=== PATIENT | male | born 1960 | race Hispanic/Latino ===

== ENCOUNTER 2017-05-08 09:42 | Outpatient (CLI) | payer OTHER ==
--- NOTE | 2017-05-08 10:29 | XRay Report ---
Cervical spine: Neck spasms. AP and lateral projections demonstrates spondylosis anteriorly from the inferior margin of C4-C6 with significant narrowing of the interspace at C5-6 and possibly C6-7. Mild generalized compression of the C6 body. Degenerative apophyseal joint changes bilaterally at C5-6 and C6-7 levels. No malalignment identified but there is slight straightening of the cervical spine. No prevertebral swelling. Impression: The findings are most consistent with degenerative changes from C5-C7. No suspicion of acute change.
== END 2017-05-08 09:43 | disposition home or self-care (01) ==
LOC: SPVIMAG 09:42
PROVIDERS: ATTEND Family Medicine
DX: M54.2 Cervicalgia (principal); M62.838 Other muscle spasm
CPT/HCPCS: 72050

== ENCOUNTER 2017-07-14 06:35 | Day surgery (SDC) | payer OTHER ==
[2017-07-14] MEDS ORDERED: ECOTRIN PO ONE (06:53)
[2017-07-14] MEDS ORDERED: NACL 0.9% 500 ML 500 ML IV SCH (07:00)
[2017-07-14 07:11] LABS: Basophils # (Auto) 0.1 K/mm3 (0.0-0.1); Basophils % (Auto) 1.2 % (0.0-1.8); Eosinophils # (Auto) 0.2 K/mm3 (0.0-0.4); Eosinophils % (Auto) 2.8 % (0.0-4.3); Hematocrit 45.3 % (35.5-45.6); Hemoglobin 15.4 gm/dl (11.8-15.2); Lymphocytes # (Auto) 1.8 K/mm3 (1.2-5.4); Lymphocytes % (Auto) 30.3 % (13.4-35.0); Mean Corpuscular HGB Conc 34 % (32-34); Mean Corpuscular Hemoglobin 33 pg (28-32); Mean Corpuscular Volume 96 fl (84-94); Monocytes # (Auto) 0.6 K/mm3 (0.0-0.8); Monocytes % (Auto) 10.1 % (0.0-7.3); Platelet Count 224 K/mm3 (140-440); Red Blood Count 4.74 M/mm3 (3.65-5.03)
[2017-07-14 07:23] LABS: INR 0.93 (0.87-1.13)
[2017-07-14 08:26] LABS: BUN/Creatinine Ratio 27; Blood Urea Nitrogen 27 mg/dL (9-20); Calcium 9.6 mg/dL (8.4-10.2); Hemolysis Index 16
[2017-07-14] MEDS ORDERED: HEPARIN/NS 5000 UNIT/500ML(CATH LAB) 1,000 ML IR ONE (08:35)
[2017-07-14] MEDS ORDERED: XYLOCAINE 2% INFILTRATI ONE (08:35)
[2017-07-14] MEDS ORDERED: HEPARIN 10,000 UNITS/10 ML ONE (08:35)
[2017-07-14] MEDS ORDERED: NITROGLYCERIN SYRINGE 0 ML ONE (08:36)
[2017-07-14] MEDS ORDERED: VERSED ONE (08:36)
[2017-07-14] MEDS ORDERED: SUBLIMAZE ONE (08:36)
--- NOTE | 2017-07-14 09:31 | Short Stay Summary ---
Short Stay Documentation Date of service: 07/14/17 - History H&P: obtained from office - Allergies and Medications Current Medications: Allergies meperidine [From Demerol] Allergy (Unverified 07/14/17 06:36) Dizziness Home Medications Medication Instructions Recorded Confirmed Last Taken Type Metoprolol Xl [Metoprolol 50 mg PO DAILY 07/14/17 07/14/17 07/14/17 History SUCCINATE ER TAB] Rivaroxaban [Xarelto] 20 mg PO DAILY 07/14/17 07/14/17 07/11/17 History Active Medications Sodium Chloride (Nacl 0.9% 500 Ml) 500 mls @ 50 mls/hr IV DIRECT BRIAN Stop: 07/14/17 16:59 Last Admin: 07/14/17 07:58 Dose: 50 mls/hr - Physical exam General appearance: no acute distress Integumentary: no rash HEENT: Atraumatic Lungs: Clear to auscultation Breasts: deferred Heart: Other Gastrointestinal: normal Male Genitourinary: deferred Female Genitourinary: deferred Rectal Exam: deferred Extremities: no ischemia, pulses symmetrical Neurological: Normal gait - Brief post op/procedure progress note Date of procedure: 07/14/17 Pre-op diagnosis: CMP Post-op diagnosis: same Procedure: LHC, LV Anesthesia: MAC Findings: See report Surgeon: ODELL BAIN Estimated blood loss: none Pathology: none Condition: stable - Hospital course Hospital course: uneventful - Disposition Condition at discharge: Good Disposition: DC-01 TO HOME OR SELFCARE Short Stay Discharge Plan Activity: no driving until cleared by PCP (for 2 days) Weight Bearing Status: Non-Weight Bearing (for 2 days) Diet: regular Wound: keep clean and dry Follow up with: JAROCHO VIVAR NP [Primary Care Provider] - 7 Days
[2017-07-14 11:58] VITALS: BP 122/81
--- NOTE | 2017-07-14 12:11 | Cardiac Catherization Report ---
ORDERING PHYSICIAN: Rory Ramos MD INDICATION FOR PROCEDURE: 1. Cardiomyopathy. 2. Abnormal myocardial perfusion scan suggesting ischemia in the right coronary artery distribution. PROCEDURES PERFORMED: 1. Selective left and right coronary angiography. 2. Left ventriculography. DESCRIPTION OF PROCEDURE: After obtaining written consent, the patient was draped using sterile technique. A 2% lidocaine was injected into the right groin. A 5-Sammarinese vascular sheath was inserted into the right femoral artery. A 5-Sammarinese JL4 catheter was used to selectively engage the left coronary artery. A 5-Sammarinese JR4 catheter was used to selectively engage the right coronary artery. A 5-Sammarinese JR4 catheter was used to hand inject the left ventriculogram. There are no complications occurred during the procedure. Hemostasis was achieved at the end of the procedure using a 5-Sammarinese Mynx device. SPECIMEN REMOVED: None. ESTIMATED BLOOD LOSS: Minimal. Sedation administered 1 mg of Versed and 25 mcg of IV fentanyl. Sedation start time was 8:58 a.m. Sedation stop time was 9:12 a.m. Total sedation time was 14 minutes. HEMODYNAMICS: Aortic pressure 121/83, LV systolic pressure is 123 mmHg and LVEDP 6 mmHg. There was no significant gradient across the left ventricular outflow tract. CARDIAC STRUCTURES: The left ventricular cavity is mildly dilated and there is evidence of severe global left ventricular hypokinesis. The left ventricular ejection fraction is estimated at 30%. CORONARY ANATOMY: 1. This is a right dominant circulation. 2. The left main is angiographically normal. 3. The LAD has mild diffuse nonobstructive 20% luminal disease. 4. The left circumflex artery has mild diffuse nonobstructive 30% luminal disease. 5. The right coronary artery is a dominant vessel. The right coronary artery has mild diffuse nonobstructive 10% luminal disease. IMPRESSION: 1. Mild nonobstructive coronary artery disease. 2. Severely reduced left ventricular systolic function with an ejection fraction estimated at 30% and evidence of severe global left ventricular hypokinesis. 3. LVEDP measured at 6 mmHg. RECOMMENDATIONS: 1. The patient will be recommended for medical therapy, recommend a titer regulation of the ventricular rate in the setting of atrial fibrillation. 2. Recommend initiation of low dose CHRISTIANO inhibitors given left ventricular ejection fraction less than 40%. 3. Consider outpatient Holter monitor to evaluate heart rate control. JOB# [id number] ATJ/NAZ
== END 2017-07-14 13:50 | disposition home or self-care (01) ==
LOC: CATHLABREC 06:35
PROVIDERS: ATTEND Internal Medicine
DX: I25.10 Atherosclerotic heart disease of native coronary artery without angina pectoris (principal); I42.0 Dilated cardiomyopathy; I48.91 Unspecified atrial fibrillation; E66.9 Obesity, unspecified; Z98.890 Other specified postprocedural states; Z68.31 Body mass index [BMI] 31.0-31.9, adult; Z88.5 Allergy status to narcotic agent
CPT/HCPCS: 36415; 80048; 85025; 85610; 85730; 93005; 93010; 93458; 99156; C1760; J1644; J2250; J3010; J7040; Q9967

== ENCOUNTER 2018-12-13 09:05 | Outpatient (CLI) | payer OTHER ==
--- NOTE | 2018-12-13 11:11 | XRay Report ---
CLINICAL DATA: LOWER BACK PAIN/MUSCLE SPASM LOWER BACK LOWER BACK PAIN/MUSCLE SPASM LOWER BACK TECHNICAL DATA: AP, lateral, both obliques in the spine L5-S1 view obtained. FINDINGS: The bone mineralization is normal. Mild lower lumbar dextroscoliosis. Grade IL5-S1 spondylolisthesis with unilateral or bilateral pars defect. Grade I L3-4 retrolisthesis with no pars defect. Mild anter ior wedging of T12 and L1 with no fracture lines. The rest of the bodies are normal in height. Disc s pace narrowing at T12-L1, L1-2 and L2-3. Large anterior and lateral osteophytes at multiple levels. N o fracture. Oblique views demonstrate multilevel bilateral neural foraminal narrowing. Calcification of the abdominal aorta. IMPRESSION: 1. Scoliosis and multilevel degenerative disc disease. 2.Grade IL5-S1 spondylolisthesis with unilateral or bilateral pars defect. Grade I L3-4 retrolisthesi s with no pars defect. 3. Multilevel bilateral neural foraminal narrowing secondary to osteophytes. Signer Name: Efrain Galvez MD Signed: 12/13/2018 11:07 AM Workstation Name: [id number]
== END 2018-12-13 09:06 | disposition home or self-care (01) ==
LOC: SPVIMAG 09:05
PROVIDERS: ATTEND Chiropractor
DX: M43.16 Spondylolisthesis, lumbar region (principal); M41.56 Other secondary scoliosis, lumbar region; M99.03 Segmental and somatic dysfunction of lumbar region; M62.830 Muscle spasm of back; I48.91 Unspecified atrial fibrillation; J45.909 Unspecified asthma, uncomplicated; E03.9 Hypothyroidism, unspecified
CPT/HCPCS: 72110